=== PATIENT | female | born 1965 | race Caucasian/White ===

== ENCOUNTER 2021-07-14 15:47 | Emergency (ER) | payer OTHER ==
[2021-07-14] MEDS ORDERED: Diazepam 5 MG TAB ONE (16:15)
[2021-07-14] MEDS ORDERED: HYDROcodone/Acetaminophen 5/325 mg Tablet ONE (16:15)
[2021-07-14] MEDS ORDERED: Ketorolac Tromethamine 30 MG/ML VIAL ONE (16:15)
== END 2021-07-14 18:22 | disposition home or self-care (01) ==
LOC: ERS 15:47
DX: M62.830 Muscle spasm of back (principal); E78.5 Hyperlipidemia, unspecified; E11.9 Type 2 diabetes mellitus without complications; Z79.899 Other long term (current) drug therapy
CPT/HCPCS: 96372; 99283; J1885

== ENCOUNTER 2021-09-01 12:17 | Day surgery (SDC) | payer BC ==
[2021-08-31 10:25] VITALS: BMI 35.9
[2021-09-01] MEDS ORDERED: Magnevist 469MG/ML 20 ML VIAL ONE (13:00)
== END 2021-09-01 15:40 | disposition home or self-care (01) ==
LOC: SDC/OP 12:17
PROVIDERS: ATTEND Specialist
DX: M47.22 Other spondylosis with radiculopathy, cervical region (principal); M48.02 Spinal stenosis, cervical region; M50.121 Cervical disc disorder at C4-C5 level with radiculopathy; M48.8X2 Other specified spondylopathies, cervical region; G25.81 Restless legs syndrome; Z88.8 Allergy status to other drugs, medicaments and biological substances; Z91.012 Allergy to eggs; Z91.018 Allergy to other foods; Z91.048 Other nonmedicinal substance allergy status; Z79.899 Other long term (current) drug therapy
CPT/HCPCS: 72156

== ENCOUNTER 2021-12-29 11:39 | Day surgery (SDC) | payer BC ==
[2021-12-25 12:20] VITALS: BMI 34.4
[2021-12-29 13:10] LABS: SARS-CoV-2 NAA Rapid Test Not Detected (NotDetected)
[2021-12-29] MEDS ORDERED: Midazolam HCl 2 mg/2 ml Vial ONE (14:32)
[2021-12-29] MEDS ORDERED: Acetaminophen 500 MG TAB ONE (17:22)
== END 2021-12-29 17:55 | disposition home or self-care (01) ==
LOC: SDC/OP 11:39 → EDSTATUS 14:00 → SDC/OP 17:55
PROVIDERS: ATTEND Specialist
DX: M51.44 Schmorl's nodes, thoracic region (principal); Z79.890 Hormone replacement therapy; Z79.899 Other long term (current) drug therapy; Z88.8 Allergy status to other drugs, medicaments and biological substances; Z91.018 Allergy to other foods; Z91.048 Other nonmedicinal substance allergy status
CPT/HCPCS: 72148; J2250; U0002

== ENCOUNTER 2023-05-09 09:28 | Outpatient (CLI) | payer BC | END 2023-05-09 09:29 | disposition home or self-care (01) | LOC: DTY/OP 09:28 | PROVIDERS: ATTEND Surgery | DX: E66.01 Morbid (severe) obesity due to excess calories (principal); Z71.3 Dietary counseling and surveillance | CPT/HCPCS: 97802 ==

== ENCOUNTER 2023-11-08 10:07 | Day surgery (SDC) | payer BC ==
[2023-11-07 10:58] VITALS: BMI 29.0
[2023-11-08 11:13] LABS: #Eosinphils 0.1 thou/uL (0.0-0.7); #Monocytes 0.3 thou/uL (0.11-0.59); #Neutrophils 2.4 thou/uL (1.40-6.50); %Basophils 0.7 % (0.0-1.0); %Eosinophils 1.4 % (0.0-10.0); %Lymphocytes 36.7 % (21.0-51.0); %Monocytes 6.8 % (0.0-10.0); %Neutrophils 54.2 % (42.0-75.0); Hematocrit 39.7 % (36.0-47.0); Hemoglobin 13.3 g/dL (12.0-16.0); Mean Corpuscular HGB CONC 33.5 g/dL (32.0-36.0); Mean Corpuscular Hemoglobin 30.2 pg (27.0-31.0); Mean Corpuscular Volume 90.2 fl (78.0-98.0); Mean Platelet Volume 10.4 fL (7.4-10.4); Platelet Count 241 10x3/uL (130-400); RBC Distribution Width 13.6 % (11.5-14.5); White Blood Cell (WBC) Count 4.4 10x3/uL (4.8-10.8)
[2023-11-08] MEDS ORDERED: CEFAZOLIN 2 GM VIAL ONE (11:24)
[2023-11-08] MEDS ORDERED: Sodium Chloride 0.9% 100 ML ONE (11:24)
[2023-11-08] MEDS ORDERED: Heparin 5,000 UNITS/ML VIAL ONE (11:24)
[2023-11-08 11:36] LABS: Anion Gap 13 mmol/L (10-20); BUN (Urea Nitrogen) 26 mg/dL (9.8-20.1); Calc. Creatinine Clearance 83 mL/min (70-130); Calcium 9.7 mg/dL (7.8-10.44); Carbon Dioxide 30 mmol/L (22-29); Chloride 100 mmol/L (98-107); Estimated GFR 62; Glucose 113 mg/dL (70-105); Potassium 3.1 mmol/L (3.5-5.1); Sodium 140 mmol/L (136-145)
[2023-11-08] MEDS ORDERED: Bupivacaine 0.25% HCL 30 ML VIAL ONE (11:49)
[2023-11-08] MEDS ORDERED: EPINEPHrine 1 MG/ML VIAL ONE (11:49)
[2023-11-08] MEDS ORDERED: Bacitracin Zinc Ointment 30 gm TUBE ONE (11:49)
[2023-11-08] MEDS ORDERED: Midazolam HCl 2 mg/2 ml Vial ONE (11:59)
[2023-11-08] MEDS ORDERED: Famotidine/PF 20 mg/2ml Vial ONE (12:00)
[2023-11-08] MEDS ORDERED: Etomidate 40 MG (20 mL) VIAL ONE (12:00)
[2023-11-08] MEDS ORDERED: fentaNYL PF 100 MCG/2 ML SYRINGE ONE (12:04)
[2023-11-08] MEDS ORDERED: PHENYLEPHRINE-NS 100 MCG/ML 10 ML SYRINGE ONE (12:33)
[2023-11-08] MEDS ORDERED: MINERAL OIL/WHITE PETROLATUM 3.5 GM TUBE ONE (12:45)
[2023-11-08] MEDS ORDERED: ePHEDrine Sulfate 50 MG/10 ML VIAL ONE (12:45)
[2023-11-08] MEDS ORDERED: Ondansetron PF 4 MG/2 ML Vial ONE (13:47)
[2023-11-08] MEDS ORDERED: Lidocaine 1% PF 5 ML VIAL ONE (13:48)
[2023-11-08] MEDS ORDERED: SUGAMMADEX SODIUM 200 MG/2 ML VIAL ONE (13:48)
[2023-11-08] MEDS ORDERED: Rocuronium Bromide 10 MG/ML (10ML VIAL) ONE (13:48)
[2023-11-08] MEDS ORDERED: Maxitrol 0.1% Opth Oint 3.5 GM TUBE ONE (13:51)
[2023-11-08] MEDS ORDERED: HYDROcodone/Acetaminophen 5/325 mg Tablet ONE (15:25)
== END 2023-11-08 15:50 | disposition home or self-care (01) ==
LOC: SDC 10:07
PROVIDERS: ATTEND Plastic Surgery
PROC: 08QQXZZ Repair Right Lower Eyelid, External Approach (ICD-10-PCS; principal; 2023-11-08)
PROC: 08QNXZZ Repair Right Upper Eyelid, External Approach (ICD-10-PCS; principal; 2023-11-08)
PROC: 08RQX7Z Replacement of Right Lower Eyelid with Autologous Tissue Substitute, External Approach (ICD-10-PCS; principal; 2023-11-08)
DX: C44.1222 Squamous cell carcinoma of skin of right lower eyelid, including canthus (principal); I10 Essential (primary) hypertension; E11.9 Type 2 diabetes mellitus without complications; E07.9 Disorder of thyroid, unspecified; Z98.890 Other specified postprocedural states; Z88.8 Allergy status to other drugs, medicaments and biological substances; Z91.012 Allergy to eggs; Z91.048 Other nonmedicinal substance allergy status; Z91.018 Allergy to other foods
CPT/HCPCS: 80048; 85025; 88331; 88332; 93005; 93010; J0171; J0665; J1644; J2250; J2405; J3490; S0028

== ENCOUNTER 2024-03-30 14:31 | Day surgery (SDC) | payer BC ==
[2024-03-27 12:55] VITALS: BMI 25.4
[2024-03-30 14:23] LABS: Anion Gap 16 mmol/L (10-20); BUN (Urea Nitrogen) 28 mg/dL (9.8-20.1); Calc. Creatinine Clearance 84 mL/min (70-130); Calcium 9.6 mg/dL (7.8-10.44); Carbon Dioxide 27 mmol/L (23-31); Chloride 100 mmol/L (98-107); Estimated GFR 74; Glucose 99 mg/dL (80-115); Potassium 3.3 mmol/L (3.5-5.1); Sodium 140 mmol/L (136-145)
[~2024-03-30 14:31] MED LIST: Famotidine/PF 20 mg/2ml Vial ONE
== END 2024-03-30 15:45 | disposition home or self-care (01) ==
LOC: SDC 14:31
PROVIDERS: ATTEND Plastic Surgery Surgery of the Hand
DX: M50.020 Cervical disc disorder with myelopathy, mid-cervical region, unspecified level (principal); G47.33 Obstructive sleep apnea (adult) (pediatric); F43.12 Post-traumatic stress disorder, chronic; E11.65 Type 2 diabetes mellitus with hyperglycemia; R63.5 Abnormal weight gain; E03.8 Other specified hypothyroidism; I10 Essential (primary) hypertension; E78.5 Hyperlipidemia, unspecified; J45.909 Unspecified asthma, uncomplicated; K21.9 Gastro-esophageal reflux disease without esophagitis; K58.9 Irritable bowel syndrome, unspecified; G43.909 Migraine, unspecified, not intractable, without status migrainosus; E11.9 Type 2 diabetes mellitus without complications; E03.9 Hypothyroidism, unspecified; F41.9 Anxiety disorder, unspecified; F32.A Depression, unspecified; Z90.89 Acquired absence of other organs
CPT/HCPCS: 72141; 80048; S0028